=== PATIENT | female | born 1985 | race African-American/Black ===

== ENCOUNTER 2017-12-19 18:20 | Emergency (ER) | payer OTHER ==
[2017-12-19 18:35] VITALS: BP 136/87; PULSE 89; TEMP 98.5; BMI 36.8
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
[2017-12-19] MEDS ORDERED: ACETAMINOPHEN 325 MG TABLET (FP) PO ONE (21:01)
[2017-12-19] MEDS ORDERED: ACETAMINOPHEN 325 MG TABLET (FP) ONE (21:03)
== END 2017-12-19 21:56 | disposition home or self-care (01) ==
LOC: JERFT 18:20
DX: S09.8XXA Other specified injuries of head, initial encounter (principal); Y04.2XXA Assault by strike against or bumped into by another person, initial encounter; Y93.F9 Activity, other caregiving; Y92.122 Bedroom in nursing home as the place of occurrence of the external cause; Y99.0 Civilian activity done for income or pay
CPT/HCPCS: 70486-TC; 84703; 99281-25